=== PATIENT | male | born 1985 | race African-American/Black ===

== ENCOUNTER 2023-12-08 10:57 | Emergency (ER) | payer OTHER ==
[~2023-12-08] VITALS: Ht 185.4 cm; Wt 80.0 kg
[2023-12-08 11:00] VITALS: BP 120/75; PULSE 81; RESP 16; TEMP 97.5; O2SAT 99
[2023-12-08] MEDS ORDERED: ALBUTEROL (0.5%) 2.5MG/0.5ML NEB HHN ONE (13:15)
[2023-12-08] MEDS ORDERED: P20 MT (15:29)
[2023-12-08] MEDS ORDERED: ALBU2.5V13 NEB (15:29)
[2023-12-08] MEDS ORDERED: ALBU18HF2 IH (15:29)
== END 2023-12-08 14:16 | disposition left against medical advice (07) ==
LOC: ER 10:57
DX: R06.02 Shortness of breath (principal); Z53.21 Procedure and treatment not carried out due to patient leaving prior to being seen by health care provider
CPT/HCPCS: 99281

== ENCOUNTER 2023-12-08 14:28 | Emergency (ER) | payer MEDICAID, OTHER ==
[~2023-12-08] VITALS: Ht 185.4 cm; Wt 79.0 kg
[2023-12-08 14:32] VITALS: O2SAT 96
[2023-12-08 15:05] VITALS: PULSE 78; RESP 20
[2023-12-08] MEDS: ALBUTEROL (0.083%) 2.5MG/3ML NEB HHN ONE (15:05)
[2023-12-08] MEDS: PREDNISONE 20MG TABLET PO ONE (15:23)
[2023-12-08] MEDS ORDERED: P20 MT (15:29)
[2023-12-08] MEDS ORDERED: ALBU18HF2 IH (15:29)
[2023-12-08] MEDS ORDERED: ALBU2.5V13 NEB (15:29)
[2023-12-08 15:45] VITALS: BP 127/63; PULSE 69; RESP 20; TEMP 98.1
== END 2023-12-08 15:49 | disposition home or self-care (01) ==
LOC: ER 14:28
DX: J45.901 Unspecified asthma with (acute) exacerbation (principal)
CPT/HCPCS: 94640; 99283; J7512